=== PATIENT | male | born 1965 | race Caucasian/White ===

== ENCOUNTER → 2019-08-05 | Day surgery (SDC) | payer OTHER ==
[~2019-08-05] MED LIST: ACETAMINOPHEN 500 MG TAB PO; ALBUTEROL 0.083% (NEB) 2.5 MG/3 ML AMP HHN; EPHEDrine 25 MG/5 ML SYG IV; FENTAnyl 50 MCG/ML VIAL IV; LABETALOL HCL 20MG INJ IV; ONDANSETRON 4 MG INJ IV; hydrALAzine 20 MG INJ IV
== END | disposition home or self-care (01) ==
LOC: GIL 08:09
DX: Z12.11 Encounter for screening for malignant neoplasm of colon (principal); K63.89 Other specified diseases of intestine; E11.9 Type 2 diabetes mellitus without complications; I10 Essential (primary) hypertension; Z79.84 Long term (current) use of oral hypoglycemic drugs
CPT/HCPCS: 45380; 82962; 88305